=== PATIENT | female | born 2005 | race Caucasian/White ===

== ENCOUNTER 2024-04-16 00:03 | Emergency (ER) | payer OTHER, SELFPAY ==
[2024-04-16 00:12] VITALS: BP 134/68; PULSE 99; O2SAT 99
[2024-04-16 00:18] VITALS: BP 134/68; PULSE 93; RESP 16; TEMP 36.9; O2SAT 99; BMI 25.6
--- NOTE | 2024-04-16 00:24 | DI.RAD.S_ITS ---
PROCEDURE: XR CHEST 1V INDICATIONS: poss syncopal episode TECHNIQUE: One view of the chest was acquired. COMPARISON: None. FINDINGS: Surgical changes and devices: None. Lungs and pleura: Lungs are clear. No pleural effusions or pneumothorax. Mediastinum: Mediastinal contours appear normal. Heart size is normal. Bones and chest wall: No suspicious bony lesions. Overlying soft tissues appear unremarkable. IMPRESSION: No acute cardiopulmonary abnormality is seen. Approved by: Liborio Álvarez M.D. on 04/16/2024 at 0:54
--- NOTE | 2024-04-16 00:25 | ED_ITS ---
HPI - Dizziness General Chief Complaint: Syncope Stated Complaint: Passed out drinking and smoking weed Time Seen by Provider: 04/16/24 00:06 Source: patient Mode of arrival: Ambulatory History of Present Illness HPI Narrative: 18-year-old female presents by private vehicle for possible syncopal episode. Patient was outside with her boyfriend. She had had several glasses of wine with dinner and was smoking weed for the 1st time in several months. Boyfriend stated that at some point patient's eyes were closed and she did not seem to be responding so he called 911. Patient then came-to but didn't seem to remember the event. She states that she feels otherwise fine now. Boyfriend states that he was very concerned and brought the patient immediately to the ER for evaluation. Patient did not have any tongue biting, abnormal shaking movements, did not urinate on herself. Patient History Social History Smoking Status: Never smoker Smoking Status: Never smoker alcohol intake frequency: holidays/special occasions only Substance Use Type: marijuana Exam Initial Vital Signs Initial Vital Signs: Vital Signs Pulse Rate 99 H 04/16/24 00:12 Blood Pressure 134/68 04/16/24 00:12 Pulse Oximetry 99 04/16/24 00:12 Const: Awake, alert, no acute distress, nontoxic appearing Cardiac: regular rate, regular rhythm, faint systolic heart murmur auscultated RESP: unlabored, clear bilaterally, no wheezing Skin: Warm, Dry, intact, no rashes Neuro: AO x3, CN II-XII grossly intact, moves all extremities Course Orders Ordered: ED Orders 04/16/24 00:18 EKG-12 Lead Stat 04/16/24 00:24 Chest [XR chest 1V] Stat Vital Signs Vital signs: Vital Signs - 8 hr 04/16/24 00:12 04/16/24 00:12 04/16/24 00:18 Temperature 98.5 F Pulse Rate 99 H 93 H Respiratory Rate 16 Blood Pressure 134/68 134/68 Pulse Oximetry 99 99 Oxygen Delivery Method Room Air 04/16/24 00:30 04/16/24 00:30 Temperature Pulse Rate 100 H Respiratory Rate Blood Pressure 121/67 Pulse Oximetry 99 Oxygen Delivery Method Room Air MDM - Dizziness ECG Data Interpretation: Normal sinus rhythm at 86 beats per minute. Normal NC, normal intervals, no ST T wave changes MDM Narrative Medical decision making narrative: Syncope versus brief unresponsive episode while drinking alcohol and smoking weed for the 1st time in several months. Patient currently feels normal. Description of events witnessed by boyfriend not suspicious for seizure. Incidental systolic heart murmur on exam, likely benign. EKG sinus rhythm, x- ray negative for acute findings. Patient advised to not mix alcohol and smoking. PCP follow up advised. Discharge Plan Departure Patient Disposition: Home Clinical Impression: Syncope Instructions: DI for Syncope in Adults (Fainting) Activity Restrictions/Additional Instructions: Your EKG and chest x-ray today were normal. An soft heart murmur was found on your exam. You can follow up as needed with your primary care doctor about this, however these are usually benign and incidental. Referrals: [facility] [Primary Care Provider] - Stand Alone Forms: Patient Portal/API
--- NOTE | 2024-04-16 00:28 | EKG_ITS ---
[address] [address] Test Date: 2024-04-16 Pat Name: Mohamud Stanton Department: [facility] Room: Gender: Female [employer] Tender: TROY : 2005 Requested By: Order Number: [id number] Reading MD: Andrew Colby Measurements Intervals [place] Rate: 86 P: 60 NC: 128 QRS: 66 QRSD: 82 T: 9 QT: 342 QTc: 409 Interpretive Statements Normal sinus rhythm Electronically Signed On 04-16-2024 12:33:49 PDT by Andrew Colby
[2024-04-16 00:30] VITALS: BP 121/67; PULSE 100; O2SAT 99
[2024-04-16 01:00] VITALS: BP 116/63; PULSE 87; O2SAT 98
== END 2024-04-16 01:07 | disposition home or self-care (01) ==
PROVIDERS: Emergency Provider Emergency Medicine
DX: R55 Syncope and collapse (principal)
CPT/HCPCS: 71045; 93005; 99281; 99283; 99284

== ENCOUNTER 2024-08-01 04:02 | Emergency (ER) | payer OTHER, SELFPAY ==
[2024-08-01 04:10] VITALS: BP 144/70; PULSE 101; RESP 18; TEMP 36.9; O2SAT 97
--- NOTE | 2024-08-01 04:18 | ED.EAR ---
HPI - Ear Problem General Chief complaint: Ear Stated complaint: earache rt side Time Seen by Provider: 08/01/24 04:14 Source: patient Mode of arrival: Ambulatory History of Present Illness HPI Narrative: 19-year-old female presents with right earache. She has had several days of upper respiratory symptoms preceding this visit. Overnight she developed right ear pain, decreased hearing. Took Tylenol at home with some relief of pain. Related Data Previous Rx's Medication Instructions Recorded amoxicillin 500 mg capsule 500 mg PO BID #10 caps 08/01/24 Patient History Social History Smoking Status: Never smoker Smoking Status: Never smoker alcohol intake frequency: holidays/special occasions only Substance Use Type: marijuana Exam Initial Vital Signs Initial Vital Signs: Vital Signs Temperature 98.4 F 08/01/24 04:10 Pulse Rate 101 H 08/01/24 04:10 Respiratory Rate 18 08/01/24 04:10 Blood Pressure 144/70 H 08/01/24 04:10 Pulse Oximetry 97 08/01/24 04:10 Oxygen Delivery Method Room Air 08/01/24 04:10 Const: Awake, alert, no acute distress, nontoxic appearing HEENT: L TM normal, R TM bulging, erythematous with purulent material, mild pharyngeal erythema without edema or exudates Skin: Warm, Dry, intact, no rashes Neuro: AO x3, CN II-XII grossly intact, moves all extremities Course Vital Signs Vital signs: Vital Signs - 8 hr 08/01/24 04:10 Temperature 98.4 F Pulse Rate 101 H Respiratory Rate 18 Blood Pressure 144/70 H Pulse Oximetry 97 Oxygen Delivery Method Room Air Medical Decision Making [facility] Narrative Medical decision making narrative: Nontoxic appearing patient with symptoms consistent with otitis media. Tympanic membrane intact without rupture. No recent antibiotic use. Pharmacies will open in next several hours and amoxicillin prescription sent to pharmacy of choice. Note for work provided. Discharge Plan Departure Patient Disposition: Home Clinical Impression: Otitis media Instructions: Middle Ear Infection Activity Restrictions/Additional Instructions: You have a middle ear infection. Take all of your antibiotics and finish every single 1 of them even if you feel better. You may take Mucinex to help prevent fluid from building behind the ear. Take Tylenol and ibuprofen per label instructions as needed for pain. Prescriptions: New amoxicillin 500 mg capsule 500 mg PO BID Qty: 10 0RF Referrals: [facility] [Primary Care Provider] - Stand Alone Forms: Patient Portal/API/Survey, Work Release Note
== END 2024-08-01 04:23 | disposition home or self-care (01) ==
PROVIDERS: Emergency Provider Emergency Medicine
DX: H66.91 Otitis media, unspecified, right ear (principal)
CPT/HCPCS: 99281; 99282

== ENCOUNTER → 2025-04-18 15:30 | Outpatient (CLI) | payer OTHER, SELFPAY ==
[2025-04-19 09:11] LABS: Rubeola Measles IgG 222.0 AU/mL (Immune >16.4)
[2025-04-21 19:10] LABS: QuantiFERON Mitogen Value >10.00 IU/mL (.); QuantiFERON Nil Value 0.07 IU/mL (.); QuantiFERON TB Gold Plus Negative (Negative); QuantiFERON TB1 Ag Value 0.09 IU/mL (.); QuantiFERON TB2 Ag Value 0.13 IU/mL (.)
== END ==
PROVIDERS: Referring Provider Nurse Practitioner Family; Visit Provider Nurse Practitioner Family
DX: Z00.00 Encounter for general adult medical examination without abnormal findings (principal)
CPT/HCPCS: 86480; 86735; 86762; 86765

== ENCOUNTER → 2025-04-22 13:40 | Outpatient (CLI) | payer OTHER, SELFPAY | PROVIDERS: Referring Provider Family Medicine; Visit Provider Family Medicine | DX: Z11.59 Encounter for screening for other viral diseases (principal) | CPT/HCPCS: 36415; 86706 ==

== ENCOUNTER 2025-07-07 07:30 | Emergency (ER) | payer OTHER, SELFPAY ==
[2025-07-07 07:37] VITALS: BP 134/94; PULSE 87; O2SAT 97
[2025-07-07 07:39] VITALS: BP 134/94; PULSE 90; RESP 18; TEMP 37.1; O2SAT 96; BMI 31.8
[2025-07-07 08:00] VITALS: BP 128/69; PULSE 107; O2SAT 96
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
[2025-07-07 08:27] VITALS: PULSE 81; O2SAT 98
[2025-07-07 08:30] VITALS: BP 119/83
== END 2025-07-07 08:37 | disposition home or self-care (01) ==
PROVIDERS: Emergency Provider Emergency Medicine
DX: S30.11XA Contusion of abdominal wall, initial encounter (principal); V89.2XXA Person injured in unspecified motor-vehicle accident, traffic, initial encounter
CPT/HCPCS: 99281